=== PATIENT | female | born 1995 | race Caucasian/White ===

== ENCOUNTER 2018-12-15 13:08 | Emergency (ER) | payer OTHER ==
--- NOTE | 2018-12-15 14:06 | ER Document Report ---
HPI - HPI Patient complains to provider of: right thumb injury Time Seen by Provider: 12/15/18 14:05 Onset: Just prior to arrival Onset/Duration: Sudden Severity: Severe Pain Level: 4 Context: This 23-year-old female presents emergency department with complaints of right distal thumb pain. Patient reports she was at work at [employer] when she shot a cabinet and her thumb got caught in it. Patient reports no pain as long she is not moving her thumb. Patient declined Motrin excepted ice pack. Denies past medical history of injury to the thumb. Reports the end of the thumb feels numb. Associated Symptoms: None Exacerbated by: Movement Relieved by: Denies Similar symptoms previously: No Recently seen / treated by doctor: No - REPRODUCTIVE Reproductive: DENIES: : Past Medical History - General Information source: Patient Last Menstrual Period: Just finished - Social History Smoking Status: Unknown if Ever Smoked Cigarette use (# per day): No Frequency of alcohol use: None Drug Abuse: None Occupation: [employer] Family History: Reviewed & Not Pertinent Patient has suicidal ideation: No Patient has homicidal ideation: No - Medical History Medical History: Negative Past Surgical History: Reports: Hx Orthopedic Surgery - Immunizations Immunizations up to date: Yes Hx Diphtheria, Pertussis, Tetanus Vaccination: Yes Vertical Provider Document - CONSTITUTIONAL Agree With Documented VS: Yes Exam Limitations: No Limitations General Appearance: WD/WN, No Apparent Distress - INFECTION CONTROL TRAVEL OUTSIDE OF THE [place] IN LAST 30 DAYS: No - HEENT HEENT: Atraumatic, Normocephalic - NECK Neck: Supple - RESPIRATORY Respiratory: No Respiratory Distress - CARDIOVASCULAR Cardiovascular: Regular Rate - MUSCULOSKELETAL/EXTREMETIES Musculoskeletal/Extremeties: Tender - Right interphalangeal pain, right thumb nail pain with small open wound - NEURO Level of Consciousness: Awake, Alert, Appropriate Motor/Sensory: No Motor Deficit - DERM Integumentary: Warm, Dry Course - Re-evaluation Re-evalutation: 12/15/18 14:57 23-year-old female presents emergency department with complaints of right thumb pain. Reports she jammed it in a cabinet at work. Complains of pain with movement. Reports no pain as long as she keeps it still. Declines pain medication. Accepted ice pack. 12/15/18 15:46 pt talked on negative x-ray. Instructed on finger splint for protection and comfort. Instructed to follow-up with primary care provider or orthopedics for continued pain she verbalized understanding. Hand X-Ray 12/15/18 14:05 IMPRESSION: NEGATIVE STUDY OF THE RIGHT HAND. NO RADIOGRAPHIC EVIDENCE OF ACUTE INJURY. - Vital Signs Vital signs: Temp Pulse Resp BP Pulse Ox 98.7 F 78 18 117/75 99 12/15/18 13:13 12/15/18 13:13 12/15/18 13:13 12/15/18 13:13 12/15/18 13:13 - Diagnostic Test Radiology reviewed: Image reviewed, Reports reviewed Procedures - Immobilization Right Thumb Immobilizer type: Finger splint (Static) Performed by: PCT Post-Proc Neuro Vasc Exam: Unchanged from pre-exam Alignment checked and good: Yes Discharge - Discharge Clinical Impression: Injury of right thumb Qualifiers: Encounter type: initial encounter Qualified Code(s): S69.91XA - Unspecified injury of right wrist, hand and finger(s), initial encounter Condition: Stable Disposition: HOME, SELF-CARE Instructions: Use of Egpn-Vyc-Vclppls Ibuprofen ([facility]), Ice & Elevation ([facility]), Temporary Splint ([facility]) Additional Instructions: *You have been evaluated for right thumb pain *Maintain the finger splint for protection *Rest/Ice/Elevate your thumb *Follow up with your primary care provider within one week for recheck and referral to orthopedics as indicated *Take motrin as indicated for pain *Return to ED for worsening condition, changes, needs Forms: Return to Work Referrals: LORA BLACK MD [Primary Care Provider] - Follow up in 3-5 days
--- NOTE | 2018-12-15 15:05 | RADIOLOGY REPORT (SQ) ---
EXAM DESCRIPTION: HAND RIGHT 3 VIEWS COMPLETED DATE/TIME: 12/15/2018 2:50 pm REASON FOR STUDY: thumb injury COMPARISON: None. EXAM PARAMETERS: NUMBER OF VIEWS: Three views. TECHNIQUE: AP, lateral and oblique radiographic images acquired of the right hand. LIMITATIONS: None. FINDINGS: MINERALIZATION: Normal. BONES: No acute fracture or dislocation. No worrisome bone lesions. JOINTS: No effusions. SOFT TISSUES: No soft tissue swelling. No foreign body. OTHER: No other significant finding. IMPRESSION: NEGATIVE STUDY OF THE RIGHT HAND. NO RADIOGRAPHIC EVIDENCE OF ACUTE INJURY. TECHNICAL DOCUMENTATION: JOB ID: [id number] [employer]- All Rights Reserved Reading location - IP/workstation name: [email or web address]
[2018-12-15 16:24] VITALS: BP 116/73
== END 2018-12-15 16:29 | disposition home or self-care (01) ==
LOC: ER 13:08
DX: S69.91XA Unspecified injury of right wrist, hand and finger(s), initial encounter (principal); S61.011A Laceration without foreign body of right thumb without damage to nail, initial encounter; M79.644 Pain in right finger(s); W22.8XXA Striking against or struck by other objects, initial encounter
CPT/HCPCS: 99283

== ENCOUNTER → 2019-03-14 | Outpatient (CLI) | payer OTHER ==
--- NOTE | 2019-03-16 09:50 | WOMENS IMAGING REPORT ---
EXAM DESCRIPTION: U/S BREAST UNILATERAL, COMPL COMPLETED DATE/TIME: 03/14/2019 11:48 am REASON FOR STUDY: N63.0 LUMP COMPARISON: None. TECHNIQUE: Real-time and static grayscale imaging performed of the right breast targeted to the area of clinical/mammographic concern. Selected color Doppler images recorded. LIMITATIONS: None. FINDINGS: In the subareolar tissue there is a well-circumscribed 2.1 x 1.0 x 1.8 cm hypoechoic nodul e with echogenic capsule. 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 BIRAD: 3 Probably benign finding. Initial short-interval follow-up suggested. RECOMMENDATION: RECOMMENDED FOLLOW-UP: Six-month ultrasound follow-up. COMMENT: The [employer] (ACR) has developed recommendations for screening MRI of the breasts in certain patient populations, to be used in conjunction with mammography. Breast MRI s urveillance may be appropriate for women with more than 20% lifetime risk of developing breast cancer as determined by genetic testing, significant family history of the disease, or history of mantle r adiation for Hodgkins Disease. ACR Practice Guidelines 2008. TECHNICAL DOCUMENTATION: JOB ID: [id number] [employer]- All Rights Reserved Reading location - IP/workstation name: [email or web address]
== END ==
LOC: WI 11:20
PROVIDERS: ATTEND Advanced Practice Midwife
DX: N63.41 Unspecified lump in right breast, subareolar (principal)
CPT/HCPCS: 76641